=== PATIENT | female | born 1975 ===

== ENCOUNTER 2020-10-01 04:18 | Inpatient (IN) | payer OTHER ==
[2020-09-29 11:27] VITALS: BMI 38.0
[2020-10-01] MEDS ORDERED: VASOPRESSIN 20 UNITS/ML VIAL IV ONE (07:17)
[2020-10-01] MEDS ORDERED: PROPOFOL 20 ML ONE (07:31)
[2020-10-01] MEDS ORDERED: LIDOCAINE HCL/PF 2% SDV 5ML VIAL ONE (07:31)
[2020-10-01] MEDS ORDERED: ROCURONIUM BROMIDE 50 MG/5 ML SYRINGE ONE (07:31)
[2020-10-01] MEDS ORDERED: BUPIVACAINE HCL/PF 0.5% (5MG/ML) 10 ML VIAL ONE (07:35)
[2020-10-01] MEDS ORDERED: BUPIVACAINE LIPOSOME/PF (EXPAREL) 266 MG/20 ML VIAL ONE (07:35)
[2020-10-01] MEDS ORDERED: MIDAZOLAM HCL 2 MG/2 ML SINGLE DOSE VIAL ONE ×2 (07:37)
[2020-10-01] MEDS ORDERED: CEFAZOLIN 2 GM in DEXTROSE 5%-WATER - 100 ML IVPB ONE (08:04)
[2020-10-01] MEDS ORDERED: ceFAZolin 2 GRAM PREMIX BAG IVPB ONE (08:22)
[2020-10-01] MEDS ORDERED: ceFAZolin SODIUM 1 GM VIAL ONE ×2 (08:27→08:57)
[2020-10-01] MEDS ORDERED: DEXAMETHASONE SOD PHOSPHATE 4 MG/1 ML VIAL ONE ×2 (08:57→10:10)
[2020-10-01] MEDS ORDERED: ONDANSETRON 4 MG/2 ML VIAL ONE (08:57)
[2020-10-01] MEDS ORDERED: KETOROLAC TROMETHAMINE 30 MG/1 ML VIAL ONE (10:10)
[2020-10-01] MEDS ORDERED: HYDROmorphone HCl 2 MG/ML VIAL ONE (10:22)
[2020-10-01] MEDS ORDERED: LABETALOL HCL 5 MG/1 ML (100MG/20 ML VIAL) ONE (10:37)
[2020-10-01] MEDS ORDERED: ONDANSETRON 4 MG/2 ML VIAL IVPUSH PRN (10:48)
[2020-10-01] MEDS ORDERED: IBUPROFEN 800 MG/8 ML IJ IVPB PRN (10:55)
[2020-10-01] MEDS ORDERED: HYDROmorphone *PCA* 10MG/50ML DISP.SYRIN ONE (11:20)
[2020-10-01] MEDS ORDERED: HYDROmorphone *PCA* 10MG/50ML DISP.SYRIN PCA ONE (11:30)
[2020-10-01 12:31] LABS: BASO % 0.1 % (0-2.0); HEMATOCRIT 30.7 % (32.4-45.2); HEMOGLOBIN 10.1 GM/dL (10.7-15.3); LYMPH % 6.9 % (8-40); MCH 33.9 pg (25.7-33.7); MCHC 32.8 g/dl (32.0-36.0); MEAN CELL VOLUME 103.2 fl (80-96); MEAN PLT VOLUME 8.1 fl (7.5-11.1); MONO % 1.8 % (3.8-10.2); NEUT % 91.2 % (42.8-82.8); PLATELET COUNT 235 10^3/uL (134-434); RBC 2.97 M/mm3 (3.60-5.2); RDW 15.2 % (11.6-15.6); WHITE BLOOD COUNT 19.3 K/mm3 (4.0-10.0)
[2020-10-01 13:57] LABS: ANISOCYTOSIS 1+; MACROCYTOSIS 0; PLATELET ESTIMATE NORMAL
[2020-10-01] MEDS: LACTATED RINGERS SOLUTION 1,000 ML IV SCH (16:30)
[2020-10-01] MEDS: HYDROmorphone *PCA* 10MG/50ML DISP.SYRIN PCA SCH (16:31)
[2020-10-01] MEDS: CEFAZOLIN 2 GM/D5W 2 GM/50 ML ML IVPB SCH (16:34)
[2020-10-01] MEDS: ACETAMINOPHEN 325 MG TABLET (FP) PO PRN (21:49)
[2020-10-02] MEDS: CEFAZOLIN 2 GM/D5W 2 GM/50 ML ML IVPB SCH (00:10)
[2020-10-02] MEDS: LACTATED RINGERS SOLUTION 1,000 ML IV SCH ×3 (05:46→15:22)
[2020-10-02] MEDS: ACETAMINOPHEN 325 MG TABLET (FP) PO PRN (06:38)
[2020-10-02] MEDS ORDERED: oxyCODONE HCL 5 MG TABLET PO PRN ×2 (08:00)
[2020-10-02 09:00] LABS: BASO % 0.3 % (0-2.0); HEMATOCRIT 23.1 % (32.4-45.2); HEMOGLOBIN 7.7 GM/dL (10.7-15.3); LYMPH % 11.6 % (8-40); MCH 33.3 pg (25.7-33.7); MCHC 33.4 g/dl (32.0-36.0); MEAN CELL VOLUME 99.7 fl (80-96); MEAN PLT VOLUME 8.4 fl (7.5-11.1); MONO % 7.6 % (3.8-10.2); NEUT % 80.5 % (42.8-82.8); PLATELET COUNT 185 10^3/uL (134-434); RBC 2.32 M/mm3 (3.60-5.2); RDW 17.4 % (11.6-15.6); WHITE BLOOD COUNT 20.3 K/mm3 (4.0-10.0)
[2020-10-02 12:42] LABS: ANISOCYTOSIS 1+; MACROCYTOSIS 0; OVALOCYTE 1+; PLATELET ESTIMATE NORMAL
[2020-10-02] MEDS ORDERED: PCA PUMP NR ONE (13:21)
[2020-10-02] MEDS: HYDROmorphone *PCA* 10MG/50ML DISP.SYRIN PCA SCH (13:22)
[2020-10-02] MEDS: SIMETHICONE 80 MG TAB.CHEW (FP) PO PRN ×2 (14:18→19:50)
[2020-10-02] MEDS: FERROUS SO4 325 MG TABLET (FP) PO SCH (17:10)
[2020-10-02] MEDS ORDERED: SIMETHICONE 80 MG TAB.CHEW (FP) PO STA (20:58)
[2020-10-02] MEDS ORDERED: ONDANSETRON 4 MG/2 ML VIAL IVPB PRN (21:03)
[2020-10-03] MEDS: SIMETHICONE 80 MG TAB.CHEW (FP) PO PRN ×6 (00:59→21:28)
[2020-10-03] MEDS: FERROUS SO4 325 MG TABLET (FP) PO SCH ×2 (08:18→16:58)
[2020-10-03] MEDS: HYDROmorphone *PCA* 10MG/50ML DISP.SYRIN PCA SCH (12:15)
[2020-10-03] MEDS: DOCUSATE SODIUM 100 MG CAPSULE (FP) PO PRN (16:58)
[2020-10-03] MEDS: LACTATED RINGERS SOLUTION 1,000 ML IV SCH (17:02)
[2020-10-03] MEDS: NEBIVOLOL 5 MG TABLET (FP) PO SCH (19:00)
[2020-10-03] MEDS: ACETAMINOPHEN 325 MG TABLET (FP) PO PRN (21:29)
[2020-10-04] MEDS: SIMETHICONE 80 MG TAB.CHEW (FP) PO PRN ×2 (02:24→08:33)
[2020-10-04] MEDS: ACETAMINOPHEN 325 MG TABLET (FP) PO PRN ×2 (02:24→08:33)
[2020-10-04] MEDS: DOCUSATE SODIUM 100 MG CAPSULE (FP) PO PRN (05:09)
[2020-10-04] MEDS: FERROUS SO4 325 MG TABLET (FP) PO SCH (08:33)
[2020-10-04] MEDS ORDERED: PT OWN MED DRAWER 7, Y5N ONE (09:40)
[2020-10-04] MEDS: NEBIVOLOL 5 MG TABLET (FP) PO SCH (10:01)
[2020-10-04] MEDS ORDERED: PCA PUMP NR ONE (14:16)
[2020-10-04 14:19] VITALS: BP 148/67; PULSE 93; TEMP 99.3
== END 2020-10-04 16:00 | disposition home or self-care (01) | DRG 743 ==
LOC: J2C 04:18 → EDSTATUS 08:00 → J6S 15:44
PROVIDERS: ADMIT Obstetrics & Gynecology; ATTEND Obstetrics & Gynecology
PROC: 30233N1 Transfusion of Nonautologous Red Blood Cells into Peripheral Vein, Percutaneous Approach (ICD-10-PCS; 2020-10-01)
PROC: 0UB90ZZ Excision of Uterus, Open Approach (ICD-10-PCS; principal; 2020-10-01 08:00)
DX: D25.1 Intramural leiomyoma of uterus (principal); N92.0 Excessive and frequent menstruation with regular cycle; R10.2 Pelvic and perineal pain; D64.9 Anemia, unspecified
CPT/HCPCS: 36415; 36430; 85025; 86780; 86850; 86900; 86901; 86922; 88305-TC; 94010; 94760; P9058